=== PATIENT | male | born 1960 | race Hispanic/Latino ===

== ENCOUNTER 2019-02-11 20:31 | Inpatient (IN) | payer OTHER, SELFPAY ==
[~2019-02-11] VITALS: Ht 162.6 cm; Wt 80.2 kg
[2019-02-11] MEDS ORDERED: SODIUM CHLORIDE 0.9% 1000ML 2,000 ML IV ONE (21:43)
[2019-02-11 21:49] LABS: BASOPHILS % (AUTO) 0.4 % (0.0-5.0); EOSINOPHILS % (AUTO) 0.7 % (0.0-8.0); HEMATOCRIT 34.9 % (42-54); LYMPHOCYTES % (AUTO) 2.7 % (21.0-51.0); MEAN CORPUSCULAR HGB CONC 34.7 g/dL (32.0-36.0); MONOCYTES % (AUTO) 2.5 % (3.0-13.0); NEUTROPHILS % (AUTO) 93.3 % (40.0-77.0); PLATELET COUNT (AUTO) 105 K/uL (130-400); RED BLOOD CELL COUNT(AUTO) 3.56 MIL/uL (4.50-6.20); WHITE BLOOD COUNT (AUTO) 7.6 K/uL (4.8-10.8)
[2019-02-11 22:01] LABS: INR 1.42 (0.85-1.15); PARTIAL THROMBOPLASTIN TIME 25.5 SEC (26.3-35.5); PROTHROMBIN TIME 14.7 SEC (9.6-11.6)
[2019-02-11 22:04] LABS: ALBUMIN 2.7 g/dL (3.5-5.0); BILIRUBIN,TOTAL 1.4 mg/dL (0.2-1.0); CREATININE 0.8 mg/dL (0.5-1.5); TOTAL PROTEIN, SERUM 7.9 g/dL (6.0-8.3)
[2019-02-11 22:11] LABS: BAND NEUTROPHILS % (MANUAL) 22 % (0-2); EOSINOPHILS % (MANUAL) 1 % (1-6); LYMPHOCYTES % (MANUAL) 2 % (22-44); MONOCYTES % (MANUAL) 3 % (2-9); SEGMENTED NEUTROPHILS % 72 % (40-70)
[2019-02-11 22:12] LABS: MAN.DIFF COMMENT-IMPRESSION MANUAL DIFFERENTIAL
[2019-02-11 22:13] LABS: PLATELET MORPHOLOGY COMMENT SLIGHTLY D
[2019-02-11 22:47] LABS: APPEARANCE,URINE Clear (CLEAR); BILIRUBIN,URINE Negative (NEGATIVE); COLOR,URINE Yellow (YELLOW); GLUCOSE, URINE (UA) Negative (NEGATIVE); KETONES,URINE Trace mg/dL (NEGATIVE); LEUKOCYTE ESTERASE ,URINE Negative (NEGATIVE); NITRATE,URINE Negative (NEGATIVE); OCCULT BLOOD,URINE Negative (NEGATIVE); PH,URINE 5.5 (5.0-8.0); PROTEIN,URINE Negative (NEGATIVE)
[2019-02-11 23:05] LABS: BACTERIA,URINE None Seen /HPF (None Seen); MUCUS,URINE Rare LPF (None Seen); RBC,URINE None Seen /HPF (0-1); SQUAMOUS EPITHELIAL CELL,UR Few /HPF (0-2); WBC,URINE None Seen /HPF (0-1)
[2019-02-11] MEDS ORDERED: POTASSIUM BICARB/CIT AC 25 MEQ TABLET.EFF ONE (23:53)
[2019-02-12] MEDS ORDERED: CHLORDIAZEPOXIDE HCL 25 MG CAP PO PRN ×2 (01:00)
[2019-02-12] MEDS ORDERED: POTASSIUM CHLORIDE 10MEQ/100ML 100 ML IV PRN (01:00)
[2019-02-12] MEDS ORDERED: POTASSIUM CHLORIDE 10% ELIXIR 20 MEQ/15 ML UDCUP PO PRN (01:00)
[2019-02-12] MEDS ORDERED: ONDANSETRON HCL 4 MG/2 ML VIAL IV PRN (01:00)
[2019-02-12] MEDS ORDERED: LIDOCAINE HCL-MPF 1% 2ML VIAL IV PRN (01:00)
[2019-02-12] MEDS ORDERED: LORAZEPAM 2 MG/ML 1 ML VIAL IVP PRN ×2 (01:00)
[2019-02-12] MEDS ORDERED: ACETAMINOPHEN 325 MG TAB PO PRN ×2 (01:00)
[2019-02-12] MEDS: THIAMINE HCL 100 MG, FOLIC ACID 1 MG, M.V.I. IV [ADULT] 10 ML in SODIUM CHLORIDE 0.9% 1... IV SCH (01:00)
[2019-02-12] MEDS ORDERED: LACTULOSE 20 GM/30 ML UDCUP PO PRN (01:00)
[2019-02-12] MEDS ORDERED: PHARMACY COMMUNICATION MISC PRN (01:00)
[2019-02-12] MEDS ORDERED: PHYTONADIONE 10 MG/1 ML AMP ONE (01:37)
[2019-02-12] MEDS ORDERED: ZOSYN 3.375GM+NS 50ML 50 ML IV ONE (01:37)
[2019-02-12] MEDS ORDERED: PHARMACY COMMUNICATION MISC SCH (02:00)
[2019-02-12 03:03] LABS: CHOLESTEROL 157 mg/dL (<200); HDL CHOLESTEROL 97 mg/dL (29-71); LDL DIRECT 91 mg/dL (0-99); TRIGLYCERIDES 115 mg/dL (30-200)
[2019-02-12 03:09] LABS: HEMOGLOBIN A1C 6.1 % (4.0-6.0)
[2019-02-12] MEDS ORDERED: THIAMINE HCL 100 MG/ML 2ML VIAL ONE (03:57)
[2019-02-12] MEDS ORDERED: M.V.I. IV [ADULT] 10 ML VIAL IV ONE (03:57)
[2019-02-12] MEDS ORDERED: FOLIC ACID 5 MG/ML 10 ML VIAL ONE (03:58)
[2019-02-12] MEDS ORDERED: SODIUM CHLORIDE 0.9% 1000ML 1,000 ML IV ONE (04:00)
[2019-02-12 04:50] VITALS: BP 150/75
[2019-02-12 05:46] LABS: BASOPHILS % (AUTO) 0.3 % (0.0-5.0); EOSINOPHILS % (AUTO) 0.1 % (0.0-8.0); HEMATOCRIT 33.6 % (42-54); LYMPHOCYTES % (AUTO) 5.2 % (21.0-51.0); MEAN CORPUSCULAR HEMOGLOBIN 33.7 pg (27.0-33.0); MEAN CORPUSCULAR HGB CONC 34.2 g/dL (32.0-36.0); MEAN CORPUSCULAR VOLUME 98.5 fL (79-99); MONOCYTES % (AUTO) 7.5 % (3.0-13.0); NEUTROPHILS % (AUTO) 86.3 % (40.0-77.0); PLATELET COUNT (AUTO) 104 K/uL (130-400); RED BLOOD CELL COUNT(AUTO) 3.41 MIL/uL (4.50-6.20); RED CELL DISTRIBUTION WIDTH 12.9 % (11.0-15.5); WHITE BLOOD COUNT (AUTO) 15.8 K/uL (4.8-10.8)
[2019-02-12 06:12] LABS: POTASSIUM 3.8 mmol/L (3.5-5.1)
[2019-02-12] MEDS: ZOSYN 3.375GM+NS 50ML 50 ML IV SCH ×3 (06:20→15:29)
[2019-02-12] MEDS: IPRATROPIUM/ALBUTEROL SULFATE 3 ML SOLUTION IH SCH ×4 (07:03→23:28)
[2019-02-12 07:58] VITALS: BP 148/77
--- NOTE | 2019-02-12 08:01 | NUR ---
Notified Dr. Leonarda Sin of consultation for black tarry stool, positive occult blood study. REviewed labs, received order for Protonix 40 mg PO BID, Full liquid diet, CBC, BMP, PT/INR in am with staff to call Dr. Sin in the morning with lab results. Per Dr. Sin, no EGD at this time.
[2019-02-12] MEDS ORDERED: FAMOTIDINE 20MG TAB 20 MG TAB PO SCH (09:00)
[2019-02-12] MEDS: PANTOPRAZOLE SODIUM 40 MG TABLET.DR PO SCH ×2 (09:21→21:36)
[2019-02-12] MEDS ORDERED: METO-408 PO (10:41)
[2019-02-12] MEDS ORDERED: LOSA25TA41 PO (10:41)
[2019-02-12 11:20] VITALS: BP 139/72
[2019-02-12 16:00] VITALS: BP 134/80
[2019-02-12 17:49] LABS: HEMATOCRIT 34.2 % (42-54)
--- NOTE | 2019-02-12 19:54 | NUR ---
CM note met with patient and states resides at home alone, is independent with adls and self care and ambulation. no dme. pt drives. goes to [facility] and meds assist. dcp chetan is back home. states no dc needs. sister can assist as needed. Addendum: 02/12/19 at 1954 by JOVANY MEDELLIN CM Amended: Links added.
[2019-02-12 20:05] VITALS: BP 135/81
[2019-02-12] MEDS ORDERED: CHLORDIAZEPOXIDE HCL 25 MG CAP PO ONE (21:00)
[2019-02-12] MEDS: METOPROLOL TARTRATE 25 MG TAB PO SCH (21:36)
[2019-02-13 00:15] VITALS: BP 143/81
[2019-02-13] MEDS: THIAMINE HCL 100 MG, FOLIC ACID 1 MG, M.V.I. IV [ADULT] 10 ML in SODIUM CHLORIDE 0.9% 1... IV SCH (02:03)
[2019-02-13] MEDS: ZOSYN 3.375GM+NS 50ML 50 ML IV SCH ×2 (02:03→10:04)
[2019-02-13 04:49] VITALS: BP 134/70
[2019-02-13 05:19] LABS: HEMATOCRIT 32.7 % (42-54); MEAN CORPUSCULAR HEMOGLOBIN 33.4 pg (27.0-33.0); MEAN CORPUSCULAR HGB CONC 33.3 g/dL (32.0-36.0); MEAN CORPUSCULAR VOLUME 100.3 fL (79-99); PLATELET COUNT (AUTO) 101 K/uL (130-400); RED BLOOD CELL COUNT(AUTO) 3.26 MIL/uL (4.50-6.20); RED CELL DISTRIBUTION WIDTH 13.4 % (11.0-15.5); WHITE BLOOD COUNT (AUTO) 8.3 K/uL (4.8-10.8)
[2019-02-13 05:24] LABS: INR 1.6 (0.85-1.15); PROTHROMBIN TIME 16.5 SEC (9.6-11.6)
[2019-02-13 05:41] LABS: POTASSIUM 3.3 mmol/L (3.5-5.1)
[2019-02-13] MEDS: IPRATROPIUM/ALBUTEROL SULFATE 3 ML SOLUTION IH SCH ×2 (06:34→11:25)
[2019-02-13 07:04] LABS: BAND NEUTROPHILS % (MANUAL) 11 % (0-2); BASOPHILS % (MANUAL) 2 % (0-2); EOSINOPHILS % (MANUAL) 4 % (1-6); LYMPHOCYTES % (MANUAL) 12 % (22-44); MAN.DIFF COMMENT-IMPRESSION MANUAL DIFFERENTIAL; MONOCYTES % (MANUAL) 3 % (2-9); REACTIVE LYMPHOCYTES 1 % (0-0); SEGMENTED NEUTROPHILS % 67 % (40-70)
[2019-02-13 07:05] LABS: PLATELET MORPHOLOGY COMMENT SLIGHTLY DECREASED
[2019-02-13] MEDS: POTASSIUM CHLORIDE 20 MEQ ERTAB PO PRN ×3 (07:24→11:46)
--- NOTE | 2019-02-13 07:48 | NUR ---
Called Dr. iSn regarding lab trends as requested and stool progression. Patient reported two black tarry stools yesterday morning and one in the afternoon with more brown color. Per Dr. Sin, start patient on regular diet, if no problems with diet, may be discharged from his standpoint with Protonix 40 mg BID and follow up with Dr. Sin in 1 week.
[2019-02-13 07:55] VITALS: BP 154/80
[2019-02-13] MEDS ORDERED: SPIR25TA6 PO (08:08)
[2019-02-13] MEDS ORDERED: PANT40TA25 PO (08:08)
[2019-02-13] MEDS ORDERED: FURO20TA4 PO (08:08)
[2019-02-13] MEDS ORDERED: LOSARTAN 50 MG TABLET PO SCH (09:00)
[2019-02-13] MEDS: PANTOPRAZOLE SODIUM 40 MG TABLET.DR PO SCH (09:57)
[2019-02-13] MEDS: METOPROLOL TARTRATE 25 MG TAB PO SCH (09:58)
[2019-02-13 11:54] VITALS: BP 118/78
[2019-02-13 15:14] VITALS: BP 143/75
== END 2019-02-13 16:06 | disposition home or self-care (01) | DRG 378 ==
LOC: EDH 20:31 → OBSVTOIN 20:32 → EDHIP 20:32 → 3DH 02-12 04:26
PROVIDERS: ADMIT Family Medicine; ATTEND Family Medicine
DX: K92.2 Gastrointestinal hemorrhage, unspecified (principal); J98.11 Atelectasis; I10 Essential (primary) hypertension; E11.9 Type 2 diabetes mellitus without complications; K06.8 Other specified disorders of gingiva and edentulous alveolar ridge; K70.30 Alcoholic cirrhosis of liver without ascites; E87.6 Hypokalemia; F10.10 Alcohol abuse, uncomplicated; Z88.8 Allergy status to other drugs, medicaments and biological substances
CPT/HCPCS: 36415; 71045; 71250; 80048; 80053; 80061; 81001; 82270; 83036; 85014; 85018; 85025; 85610; 85730; 87040; 94640; 94664; G0378; G0480; J2543; J3411; J3430; J3490; J7030

== ENCOUNTER 2020-07-30 06:30 | Emergency (ER) | payer OTHER, SELFPAY ==
[~2020-07-30] VITALS: Ht 162.6 cm; Wt 83.0 kg
[~2020-07-30 06:30] MED LIST: FURO20TA4 PO; LOSA25TA41 PO; METO-408 PO; PANT40TA54 PO; SPIR25TA6 PO
[2020-07-30 06:36] VITALS: BP 114/45
[2020-07-30] MEDS ORDERED: KETOROLAC 30MG VIAL (30MG/ML) ONE (07:58)
[2020-07-30] MEDS ORDERED: METH-812 PO (09:51)
[2020-07-30] MEDS ORDERED: ESOM40CA54 PO (09:51)
[2020-07-30] MEDS ORDERED: NAPR-1180 PO (09:51)
== END 2020-07-30 10:36 | disposition home or self-care (01) ==
LOC: EDH 06:40
DX: M54.5 Low back pain (principal); F10.10 Alcohol abuse, uncomplicated; E11.9 Type 2 diabetes mellitus without complications; K74.60 Unspecified cirrhosis of liver; I10 Essential (primary) hypertension; Z79.1 Long term (current) use of non-steroidal anti-inflammatories (NSAID)
CPT/HCPCS: 96374; 99283; J1885

== ENCOUNTER 2021-06-29 13:13 | Inpatient (IN) | payer OTHER ==
[~2021-06-29] VITALS: Ht 162.6 cm; Wt 79.5 kg
[~2021-06-29 13:13] MED LIST changes: +ESOM40CA54 PO; +METH-812 PO; +NAPR-1180 PO
[2021-06-29 13:54] LABS: BASOPHILS % (AUTO) 0.9 % (0.0-5.0); EOSINOPHILS % (AUTO) 0.1 % (0.0-8.0); HEMATOCRIT 29.7 % (42-54); LYMPHOCYTES % (AUTO) 7.1 % (21.0-51.0); MEAN CORPUSCULAR HGB CONC 34.3 g/dL (32.0-36.0); MEAN CORPUSCULAR VOLUME 104.9 fL (79-99); MONOCYTES % (AUTO) 8.4 % (3.0-13.0); NEUTROPHILS % (AUTO) 83.2 % (40.0-77.0); PLATELET COUNT (AUTO) 99 K/uL (130-400); RED BLOOD CELL COUNT(AUTO) 2.83 MIL/uL (4.50-6.20); RED CELL DISTRIBUTION WIDTH 13.8 % (11.0-15.5); WHITE BLOOD COUNT (AUTO) 6.9 K/uL (4.8-10.8)
[2021-06-29] MEDS ORDERED: ONDANSETRON 4MG INJ IVP ONE (14:00)
[2021-06-29] MEDS ORDERED: FAMOTIDINE 20MG VIAL IV ONE (14:00)
[2021-06-29] MEDS ORDERED: LORAZEPAM 2 MG/ML 1 ML VIAL IVP ONE ×2 (14:00→15:00)
[2021-06-29] MEDS ORDERED: 0.9%NACL 1000ML 1,000 ML IV ONE (14:00)
[2021-06-29 14:04] LABS: CREATININE 1.3 mg/dL (0.5-1.5); POTASSIUM 3.9 mmol/L (3.5-5.1)
[2021-06-29 14:09] LABS: ALBUMIN 2.1 g/dL (3.5-5.0); BILIRUBIN,TOTAL 4.8 mg/dL (0.2-1.0); TOTAL PROTEIN, SERUM 7.6 g/dL (6.0-8.3)
[2021-06-29 14:11] LABS: INR 1.89 (0.85-1.15); PROTHROMBIN TIME 19.9 SEC (9.6-11.6)
[2021-06-29 14:13] LABS: PARTIAL THROMBOPLASTIN TIME 29.4 SEC (26.3-35.5)
[2021-06-29 14:50] LABS: INFLUENZA TYPE A NEGATIVE FOR TYPE A (NEG)
[2021-06-29] MEDS: M.V.I. IV [ADULT] 10 ML, FOLIC ACID 1 MG, THIAMINE HCL 100 MG in 0.9%NACL 1000ML 1,000 ML IV SCH (14:50)
[2021-06-29 14:51] LABS: INFLUENZA TYPE B NEGATIVE FOR TYPE B (NEG)
[2021-06-29 15:24] LABS: CRP QUANTITATIVE 20.4 mg/L (0.00-9.0); MAGNESIUM 1.2 mg/dL (1.80-2.40)
[2021-06-29] MEDS ORDERED: CEFTRIAXONE 2GM VIAL IVP SCH (16:00)
[2021-06-29] MEDS ORDERED: OCTREOTIDE ACETATE 100 MCG/ML AMP IV SCH (16:00)
[2021-06-29] MEDS ORDERED: MAGNESIUM 2GM PREMIX 50ML 50 ML IV SCH (16:00)
[2021-06-29] MEDS ORDERED: PHARMACY COMMUNICATION MISC PRN (16:00)
[2021-06-29] MEDS ORDERED: PANTOPRAZOLE 40MG INJ 80 MG in 0.9%NACL 100ML 100 ML IVP SCH (16:00)
[2021-06-29] MEDS ORDERED: OCTREOTIDE ACETATE 1,250 MCG in 0.9% NACL 250ML 250 ML IV SCH (16:00)
[2021-06-29] MEDS ORDERED: PANTOPRAZOLE 40 MG/VIAL IVP ONE (16:00)
[2021-06-29] MEDS ORDERED: PHYTONADIONE 10 MG/1 ML AMP SQ ONE (16:00)
[2021-06-29] MEDS ORDERED: THIAMINE HCL 100 MG/ML 2ML VIAL IVP SCH (16:00)
[2021-06-29] MEDS ORDERED: LACTULOSE 20 GM/30 ML UDCUP PO PRN (16:00)
[2021-06-29] MEDS ORDERED: LORAZEPAM 2 MG/ML 1 ML VIAL IVP PRN (16:00)
[2021-06-29 16:10] LABS: APPEARANCE,URINE Clear (CLEAR); BILIRUBIN,URINE Small (NEGATIVE); COLOR,URINE Dark Yellow (YELLOW); GLUCOSE, URINE (UA) Negative (NEGATIVE); KETONES,URINE 15 mg/dL (NEGATIVE); LEUKOCYTE ESTERASE ,URINE Small (NEGATIVE); NITRATE,URINE Negative (NEGATIVE); OCCULT BLOOD,URINE Small (NEGATIVE); PROTEIN,URINE Trace mg/dL (NEGATIVE)
[2021-06-29 16:18] LABS: AMPHET/METH SCREEN,URINE NEGATIVE (NEGATIVE); BARBITURATE SCREEN, URINE NEGATIVE (NEGATIVE); BENZODIAZEPINES SCREEN,URINE NEGATIVE (NEGATIVE); CANNABINOID SCREEN,URINE NEGATIVE (NEGATIVE); COCAINE SCREEN,URINE POSITIVE (NEGATIVE); OPIATE SCREEN,URINE NEGATIVE (NEGATIVE); PHENCYCLIDINE SCREEN,URINE NEGATIVE (NEGATIVE)
[2021-06-29 16:31] LABS: HEMATOCRIT 26.8 % (42-54)
[2021-06-29 16:33] LABS: BACTERIA,URINE Few /HPF (None Seen); MUCUS,URINE Few LPF (None Seen); SQUAMOUS EPITHELIAL CELL,UR Few /HPF (0-2)
[2021-06-29] MEDS: MAGNESIUM 2GM PREMIX 50ML 50 ML IV SCH ×2 (16:45→21:34)
[2021-06-29] MEDS ORDERED: LOSA50TA64 PO (17:22)
[2021-06-29] MEDS: CHLORDIAZEPOXIDE HCL 25 MG CAP PO SCH ×2 (17:23→21:33)
[2021-06-29 19:00] VITALS: BP 150/84
[2021-06-29 19:55] VITALS: BP 131/66
[2021-06-29] MEDS ORDERED: PANTOPRAZOLE 40 MG/VIAL IVP SCH (21:00)
[2021-06-29 21:32] LABS: HEMATOCRIT 24.6 % (42-54)
[2021-06-29] MEDS: RIFAXIMIN 550 MG TABLET PO SCH (21:33)
[2021-06-29] MEDS: ZOSYN 3.375GM +NS 50ML IV SCH (21:33)
[2021-06-29] MEDS: PANTOPRAZOLE 40 MG/VIAL IVP SCH (21:33)
[2021-06-29] MEDS ORDERED: METRONIDAZOLE 500MG/100ML BAG 100 ML IVPB SCH (22:00)
[2021-06-29 23:53] VITALS: BP 128/77
[2021-06-30] VITALS (23 sets, daily range): BP systolic 98–149; BP diastolic 40–81
[2021-06-30 02:42] LABS: BASOPHILS % (AUTO) 0.4 % (0.0-5.0); EOSINOPHILS % (AUTO) 0.9 % (0.0-8.0); HEMATOCRIT 23.4 % (42-54); LYMPHOCYTES % (AUTO) 15.2 % (21.0-51.0); MEAN CORPUSCULAR HEMOGLOBIN 34.4 pg (27.0-33.0); MEAN CORPUSCULAR HGB CONC 32.5 g/dL (32.0-36.0); MEAN CORPUSCULAR VOLUME 105.9 fL (79-99); MONOCYTES % (AUTO) 15.3 % (3.0-13.0); NEUTROPHILS % (AUTO) 67.8 % (40.0-77.0); PLATELET COUNT (AUTO) 64 K/uL (130-400); RED BLOOD CELL COUNT(AUTO) 2.21 MIL/uL (4.50-6.20); RED CELL DISTRIBUTION WIDTH 13.6 % (11.0-15.5); WHITE BLOOD COUNT (AUTO) 5.3 K/uL (4.8-10.8)
[2021-06-30 02:54] LABS: ALBUMIN 1.9 g/dL (3.5-5.0); BILIRUBIN,TOTAL 3.8 mg/dL (0.2-1.0); CREATININE 1.1 mg/dL (0.5-1.5); TOTAL PROTEIN, SERUM 6.5 g/dL (6.0-8.3)
[2021-06-30 02:55] LABS: INR 2.03 (0.85-1.15); PROTHROMBIN TIME 21.3 SEC (9.6-11.6)
[2021-06-30 02:56] LABS: PARTIAL THROMBOPLASTIN TIME 32.8 SEC (26.3-35.5)
[2021-06-30] MEDS: MAGNESIUM 2GM PREMIX 50ML 50 ML IV SCH (03:58)
[2021-06-30] MEDS: ZOSYN 3.375GM +NS 50ML IV SCH ×3 (04:02→20:14)
[2021-06-30] MEDS ORDERED: PHYTONADIONE 10 MG/1 ML AMP SQ ONE (06:00)
[2021-06-30] MEDS: CHLORDIAZEPOXIDE HCL 25 MG CAP PO SCH ×4 (07:55→20:14)
[2021-06-30] MEDS: PANTOPRAZOLE 40 MG/VIAL IVP SCH ×2 (07:55→20:14)
[2021-06-30] MEDS: RIFAXIMIN 550 MG TABLET PO SCH ×2 (07:55→20:14)
[2021-06-30] MEDS ORDERED: FENTANYL CITRATE PF 50 MCG/1 ML 2ML VIAL ONE (09:38)
[2021-06-30] MEDS ORDERED: LIDOCAINE HCL 1% 20 ML VIAL ONE (09:38)
[2021-06-30] MEDS ORDERED: PROPOFOL 10 MG/ML 20ML VIAL IV ONE (09:39)
[2021-06-30] MEDS ORDERED: PHENYLEPHRINE HCL 10 MG/ML 1ML VIAL IV ONE (09:47)
[2021-06-30] MEDS: M.V.I. IV [ADULT] 10 ML, FOLIC ACID 1 MG, THIAMINE HCL 100 MG in 0.9%NACL 1000ML 1,000 ML IV SCH (13:07)
[2021-06-30] MEDS ORDERED: LIDOCAINE HCL-MPF 1% 2ML VIAL IV PRN (15:30)
[2021-06-30] MEDS ORDERED: POTASSIUM CHLORIDE 10MEQ/100ML 100 ML IV PRN (15:30)
[2021-06-30] MEDS ORDERED: MAGNESIUM 2GM PREMIX 50ML 50 ML IV PRN (15:30)
[2021-07-01] MEDS: MAGNESIUM 2GM PREMIX 50ML 50 ML IV SCH (01:07)
[2021-07-01 03:25] LABS: HEMATOCRIT 23.3 % (42-54); MEAN CORPUSCULAR HEMOGLOBIN 34.5 pg (27.0-33.0); MEAN CORPUSCULAR HGB CONC 33.5 g/dL (32.0-36.0); MEAN CORPUSCULAR VOLUME 103.1 fL (79-99); RED BLOOD CELL COUNT(AUTO) 2.26 MIL/uL (4.50-6.20); RED CELL DISTRIBUTION WIDTH 13.2 % (11.0-15.5); WHITE BLOOD COUNT (AUTO) 4.8 K/uL (4.8-10.8)
[2021-07-01 03:36] LABS: MAGNESIUM 2.2 mg/dL (1.80-2.40); POTASSIUM 3.5 mmol/L (3.5-5.1)
[2021-07-01 04:29] VITALS: BP 145/75
[2021-07-01] MEDS: ZOSYN 3.375GM +NS 50ML IV SCH ×2 (05:17→12:49)
[2021-07-01 08:00] VITALS: BP 122/61
[2021-07-01] MEDS: PANTOPRAZOLE 40 MG/VIAL IVP SCH (09:02)
[2021-07-01] MEDS: CHLORDIAZEPOXIDE HCL 25 MG CAP PO SCH ×2 (09:02→14:15)
[2021-07-01] MEDS: RIFAXIMIN 550 MG TABLET PO SCH (09:02)
[2021-07-01] MEDS: M.V.I. IV [ADULT] 10 ML, FOLIC ACID 1 MG, THIAMINE HCL 100 MG in 0.9%NACL 1000ML 1,000 ML IV SCH (09:58)
[2021-07-01 12:00] VITALS: BP 128/68
[2021-07-01] MEDS ORDERED: PANT40TA PO (13:05)
[2021-07-01 16:00] VITALS: BP 130/78
== END 2021-07-01 18:00 | disposition home or self-care (01) | DRG 432 ==
LOC: EDH 13:13 → UNDOADMOB 13:14 → EDHIP 13:14 → 4BH 18:50
PROVIDERS: ADMIT Internal Medicine; ATTEND Internal Medicine
PROC: 30233K1 Transfusion of Nonautologous Frozen Plasma into Peripheral Vein, Percutaneous Approach (ICD-10-PCS; 2021-06-29)
PROC: 0DJ08ZZ Inspection of Upper Intestinal Tract, Via Natural or Artificial Opening Endoscopic (ICD-10-PCS; principal; 2021-06-30)
DX: K70.30 Alcoholic cirrhosis of liver without ascites (principal); J18.9 Pneumonia, unspecified organism; E43 Unspecified severe protein-calorie malnutrition; K92.2 Gastrointestinal hemorrhage, unspecified; D62 Acute posthemorrhagic anemia; E87.2 Acidosis; D68.4 Acquired coagulation factor deficiency; K76.6 Portal hypertension; N39.0 Urinary tract infection, site not specified; K92.0 Hematemesis; K31.89 Other diseases of stomach and duodenum; K72.90 Hepatic failure, unspecified without coma; D69.6 Thrombocytopenia, unspecified; I10 Essential (primary) hypertension; F14.10 Cocaine abuse, uncomplicated; F10.10 Alcohol abuse, uncomplicated; Z20.822 Contact with and (suspected) exposure to COVID-19; Y90.9 Presence of alcohol in blood, level not specified; E66.9 Obesity, unspecified; E83.42 Hypomagnesemia; E11.9 Type 2 diabetes mellitus without complications; E78.5 Hyperlipidemia, unspecified; F41.9 Anxiety disorder, unspecified; Z68.30 Body mass index [BMI] 30.0-30.9, adult
CPT/HCPCS: 36415; 43235; 70450; 71045; 72125; 74176; 76700; 80048; 80053; 80305; 81001; 82105; 82140; 82270; 82948; 83605; 83690; 83735; 84145; 84484; 85014; 85018; 85025; 85027; 85384; 85610; 85651; 85730; 86140; 86850; 86900; 86901; 86927; 87015; 87635; 87804; 93005; A4606; C9113; C9803; G0378; J0696; J2060; J2354; J2370; J2405; J2543; J2704; J3010; J3411; J3430; J3475; J3490; J7030; J7050; P9017

== ENCOUNTER 2022-04-17 16:08 | Inpatient (IN) | payer BC, OTHER ==
[~2022-04-17] VITALS: Ht 162.6 cm; Wt 72.1 kg
[~2022-04-17 16:08] MED LIST changes: -ESOM40CA54 PO; -FURO20TA4 PO; -LOSA25TA41 PO; +LOSA50TA64 PO; -METH-812 PO; -NAPR-1180 PO; +PANT40TA PO; -PANT40TA54 PO; -SPIR25TA6 PO
[2022-04-17] MEDS ORDERED: IBUPROFEN 800 MG TAB ONE (16:12)
[2022-04-17] MEDS ORDERED: IBUPROFEN 800 MG TAB PO ONE (16:30)
[2022-04-17 16:40] LABS: APPEARANCE,URINE CLEAR (CLEAR); BILIRUBIN,URINE NEGATIVE (NEGATIVE); COLOR,URINE YELLOW (YELLOW); GLUCOSE, URINE (UA) NEGATIVE (NEGATIVE); KETONES,URINE NEGATIVE (NEGATIVE); LEUKOCYTE ESTERASE ,URINE NEGATIVE Leu/uL (NEGATIVE); NITRATE,URINE NEGATIVE (NEGATIVE); OCCULT BLOOD,URINE MODERATE (NEGATIVE); PH,URINE 5.5 (5.0-8.0); PROTEIN,URINE 10 mg/dL (NEGATIVE); UROBILINOGEN,URINE 0.2 mg/dL (0.2-1.0)
[2022-04-17 16:47] LABS: AMPHET/METH SCREEN,URINE NEGATIVE (NEGATIVE); BARBITURATE SCREEN, URINE NEGATIVE (NEGATIVE); BENZODIAZEPINES SCREEN,URINE NEGATIVE (NEGATIVE); CANNABINOID SCREEN,URINE NEGATIVE (NEGATIVE); COCAINE SCREEN,URINE NEGATIVE (NEGATIVE); OPIATE SCREEN,URINE NEGATIVE (NEGATIVE); PHENCYCLIDINE SCREEN,URINE NEGATIVE (NEGATIVE)
[2022-04-17 16:49] LABS: BACTERIA,URINE RARE /HPF (None Seen); MUCUS,URINE RARE LPF (None Seen); OTHER CASTS, URINE 1 /LPF (None Seen); SQUAMOUS EPITHELIAL CELL,UR RARE /HPF (0-2)
[2022-04-17 16:53] LABS: BASOPHILS % (AUTO) 0.2 % (0.0-5.0); EOSINOPHILS % (AUTO) 0.1 % (0.0-8.0); HEMATOCRIT 27.7 % (42-54); MEAN CORPUSCULAR HEMOGLOBIN 34.8 pg (27.0-33.0); MEAN CORPUSCULAR HGB CONC 35.4 g/dL (32.0-36.0); MEAN CORPUSCULAR VOLUME 98.2 fL (79-99); MONOCYTES % (AUTO) 1.9 % (3.0-13.0); NEUTROPHILS % (AUTO) 94.9 % (40.0-77.0); PLATELET COUNT (AUTO) 83 K/uL (130-400); RED BLOOD CELL COUNT(AUTO) 2.82 MIL/uL (4.50-6.20); RED CELL DISTRIBUTION WIDTH 14.2 % (11.0-15.5); WHITE BLOOD COUNT (AUTO) 11.7 K/uL (4.8-10.8)
[2022-04-17 17:00] LABS: INR 2.08 (0.85-1.15); PROTHROMBIN TIME 21.8 SEC (9.6-11.6)
[2022-04-17] MEDS ORDERED: 0.9%NACL 1000ML 1,000 ML IV ONE (17:00)
[2022-04-17] MEDS ORDERED: ZOSYN 3.375GM +NS 50ML IVPB STA (17:01)
[2022-04-17 17:02] LABS: PARTIAL THROMBOPLASTIN TIME 30.5 SEC (26.3-35.5)
[2022-04-17] MEDS ORDERED: ZOSYN 3.375GM+NS 50ML 50 ML IVPB ONE (17:02)
[2022-04-17 17:03] LABS: CREATININE 1.6 mg/dL (0.5-1.5); POTASSIUM 3.5 mmol/L (3.5-5.1)
[2022-04-17 17:07] LABS: ALBUMIN 2.2 g/dL (3.5-5.0); TOTAL PROTEIN, SERUM 6.6 g/dL (6.0-8.3)
[2022-04-17 17:08] LABS: ALCOHOL, BLOOD < 3 mg/dL (0-10)
[2022-04-17 17:11] LABS: AMMONIA 124 umol/L (11-32)
[2022-04-17] MEDS ORDERED: LACTULOSE 20 GM/30 ML UDCUP PR ONE (17:30)
[2022-04-17] MEDS ORDERED: ONDANSETRON 4MG INJ IVP PRN (18:30)
[2022-04-17] MEDS ORDERED: FOLIC ACID 1 MG TABLET PO SCH (18:30)
[2022-04-17] MEDS ORDERED: ACETAMINOPHEN 500 MG TABLET PO PRN ×2 (18:30)
[2022-04-17] MEDS ORDERED: PANTOPRAZOLE 40 MG/VIAL IVP SCH (18:30)
[2022-04-17] MEDS ORDERED: THIAMINE HCL 100 MG/ML 2ML VIAL IVP ONE (18:30)
[2022-04-17] MEDS ORDERED: OCTREOTIDE ACETATE 100 MCG/ML AMP IV ONE (18:30)
[2022-04-17] MEDS ORDERED: PHYTONADIONE 10 MG/1 ML AMP SQ ONE (18:30)
[2022-04-17] MEDS ORDERED: DEXTROSE 50%-WATER 50 ML DISP.SYRIN IV PRN (19:00)
[2022-04-17] MEDS ORDERED: 0.9%NACL 50ML IV SCH (19:00)
[2022-04-17] MEDS ORDERED: GLUCAGON 1MG KIT 1 MG ML IM PRN (19:00)
[2022-04-17] MEDS: 0.9%NACL 1000ML 1,000 ML IV SCH (19:02)
[2022-04-17 19:28] LABS: CRP QUANTITATIVE 29.5 mg/L (0.00-9.0)
[2022-04-17] MEDS: ERYTHROMYCIN LACTOBIONATE 250 MG in 0.9%NACL 100ML 100 ML IV SCH (21:30)
[2022-04-17 21:38] LABS: HEMATOCRIT 26.6 % (42-54)
[2022-04-17 21:47] LABS: CREATININE,URINE RANDOM 224 mg/dL (30-135); SODIUM,URINE RANDOM < 14 mmol/l (40-220)
[2022-04-17] MEDS: PANTOPRAZOLE 40MG INJ 80 MG in 0.9%NACL 100ML 100 ML IVP SCH (22:19)
[2022-04-17] MEDS: OCTREOTIDE ACETATE 1,250 MCG in 0.9% NACL 250ML 250 ML IV SCH (22:20)
[2022-04-17] MEDS: LACTULOSE 20 GM/30 ML UDCUP PO SCH (22:33)
[2022-04-17] MEDS: DOXYCYCLINE 100MG+NS 250ML IV SCH (22:34)
[2022-04-17] MEDS: RIFAXIMIN 550 MG TABLET PO SCH (22:34)
[2022-04-17] MEDS: ZOSYN 3.375GM +NS 50ML IVPB SCH (22:34)
[2022-04-18 02:35] LABS: HEMATOCRIT 25.7 % (42-54)
[2022-04-18] MEDS: LACTULOSE 20 GM/30 ML UDCUP PO SCH ×4 (05:00→19:16)
[2022-04-18] MEDS: ZOSYN 3.375GM +NS 50ML IVPB SCH ×3 (05:18→20:12)
[2022-04-18 05:54] LABS: INR 1.92 (0.85-1.15); PROTHROMBIN TIME 20.2 SEC (9.6-11.6)
[2022-04-18 05:55] LABS: PARTIAL THROMBOPLASTIN TIME 33.8 SEC (26.3-35.5)
[2022-04-18 05:58] LABS: ALBUMIN 1.9 g/dL (3.5-5.0); CREATININE 1.4 mg/dL (0.5-1.5); MAGNESIUM 1.2 mg/dL (1.80-2.40); POTASSIUM 3.8 mmol/L (3.5-5.1); TOTAL PROTEIN, SERUM 5.9 g/dL (6.0-8.3)
[2022-04-18] MEDS ORDERED: PANTOPRAZOLE 40 MG/VIAL ONE (06:04)
[2022-04-18] MEDS: PANTOPRAZOLE 40MG INJ 80 MG in 0.9%NACL 100ML 100 ML IVP SCH (06:10)
[2022-04-18] MEDS ORDERED: PHYTONADIONE 10 MG in 0.9%NACL 50ML 50 ML IVPB SCH (07:00)
[2022-04-18] MEDS: RIFAXIMIN 550 MG TABLET PO SCH ×2 (07:00→19:16)
[2022-04-18] MEDS: 0.9%NACL 1000ML 1,000 ML IV SCH (07:33)
[2022-04-18] MEDS: DOXYCYCLINE 100MG+NS 250ML IV SCH ×2 (08:10→20:12)
[2022-04-18 09:38] LABS: HEMATOCRIT 27.2 % (42-54)
[2022-04-18] MEDS: ERYTHROMYCIN LACTOBIONATE 250 MG in 0.9%NACL 100ML 100 ML IV SCH (09:47)
[2022-04-18 11:16] VITALS: BP 103/55
[2022-04-18] MEDS ORDERED: POTASSIUM CHLORIDE 10MEQ/100ML 100 ML IV PRN (11:30)
[2022-04-18] MEDS ORDERED: MAGNESIUM 2GM PREMIX 50ML 50 ML IV PRN (11:30)
[2022-04-18] MEDS ORDERED: LIDOCAINE HCL-MPF 1% 2ML VIAL IV PRN (11:30)
[2022-04-18] MEDS ORDERED: PROPOFOL 10 MG/ML 20ML VIAL IV ONE (11:51)
[2022-04-18] MEDS ORDERED: PHENYLEPHRINE HCL 10 MG/ML 1ML VIAL IV ONE (11:51)
[2022-04-18 13:00] VITALS: BP 104/64
[2022-04-18 16:00] VITALS: BP 98/58
[2022-04-18] MEDS ORDERED: SPIR100T PO (18:02)
[2022-04-18] MEDS ORDERED: FOLI0.8T3 PO (18:02)
[2022-04-18] MEDS ORDERED: FURO40TA5 PO (18:02)
[2022-04-18] MEDS ORDERED: PANT40TA55 PO (18:02)
[2022-04-18 19:32] VITALS: BP 111/59
[2022-04-19] VITALS (7 sets, daily range): BP systolic 116–132; BP diastolic 64–73
[2022-04-19] MEDS: LACTULOSE 20 GM/30 ML UDCUP PO SCH ×3 (01:00→13:00)
[2022-04-19 04:05] LABS: BASOPHILS % (AUTO) 0.4 % (0.0-5.0); EOSINOPHILS % (AUTO) 3.4 % (0.0-8.0); HEMATOCRIT 27.4 % (42-54); LYMPHOCYTES % (AUTO) 10.1 % (21.0-51.0); MEAN CORPUSCULAR HEMOGLOBIN 34.4 pg (27.0-33.0); MEAN CORPUSCULAR HGB CONC 34.7 g/dL (32.0-36.0); MEAN CORPUSCULAR VOLUME 99.3 fL (79-99); MONOCYTES % (AUTO) 8.3 % (3.0-13.0); NEUTROPHILS % (AUTO) 77.1 % (40.0-77.0); PLATELET COUNT (AUTO) 87 K/uL (130-400); RED BLOOD CELL COUNT(AUTO) 2.76 MIL/uL (4.50-6.20); RED CELL DISTRIBUTION WIDTH 14.6 % (11.0-15.5)
[2022-04-19 04:26] LABS: ALBUMIN 1.8 g/dL (3.5-5.0); BILIRUBIN,DIRECT 0.7 mg/dL (0.0-0.3); CREATININE 1.3 mg/dL (0.5-1.5); POTASSIUM 3.3 mmol/L (3.5-5.1); TOTAL PROTEIN, SERUM 5.5 g/dL (6.0-8.3)
[2022-04-19] MEDS: ZOSYN 3.375GM +NS 50ML IVPB SCH ×3 (04:30→20:27)
[2022-04-19] MEDS ORDERED: POTASSIUM CHLORIDE 10MEQ/100ML 100 ML IV PRN (05:00)
[2022-04-19] MEDS: RIFAXIMIN 550 MG TABLET PO SCH ×2 (06:29→20:25)
[2022-04-19] MEDS: KCL 20 MEQ ERTAB PO PRN ×3 (06:30→10:26)
[2022-04-19] MEDS: DOXYCYCLINE 100MG+NS 250ML IV SCH ×2 (08:06→20:24)
[2022-04-19] MEDS: PANTOPRAZOLE 40 MG TAB DR PO SCH (08:06)
[2022-04-19] MEDS: OCTREOTIDE ACETATE 1,250 MCG in 0.9% NACL 250ML 250 ML IV SCH (20:25)
[2022-04-19] MEDS: ERYTHROMYCIN LACTOBIONATE 250 MG in 0.9%NACL 100ML 100 ML IV SCH (22:13)
[2022-04-20 04:44] VITALS: BP 117/63
[2022-04-20] MEDS: ZOSYN 3.375GM +NS 50ML IVPB SCH ×3 (05:06→21:33)
[2022-04-20] MEDS: LACTULOSE 20 GM/30 ML UDCUP PO SCH ×4 (05:06→18:42)
[2022-04-20 06:05] LABS: BASOPHILS % (AUTO) 0.9 % (0.0-5.0); HEMATOCRIT 31.5 % (42-54); LYMPHOCYTES % (AUTO) 16.2 % (21.0-51.0); MEAN CORPUSCULAR HEMOGLOBIN 34.4 pg (27.0-33.0); MEAN CORPUSCULAR HGB CONC 33.7 g/dL (32.0-36.0); MEAN CORPUSCULAR VOLUME 102.3 fL (79-99); MONOCYTES % (AUTO) 8.3 % (3.0-13.0); NEUTROPHILS % (AUTO) 67.9 % (40.0-77.0); PLATELET COUNT (AUTO) 117 K/uL (130-400); RED BLOOD CELL COUNT(AUTO) 3.08 MIL/uL (4.50-6.20); RED CELL DISTRIBUTION WIDTH 14.6 % (11.0-15.5); WHITE BLOOD COUNT (AUTO) 9.6 K/uL (4.8-10.8)
[2022-04-20 06:57] LABS: BILIRUBIN,DIRECT 0.9 mg/dL (0.0-0.3); CREATININE 1.1 mg/dL (0.5-1.5); CRP QUANTITATIVE 30.6 mg/L (0.00-9.0); POTASSIUM 3.8 mmol/L (3.5-5.1); TOTAL PROTEIN, SERUM 6.3 g/dL (6.0-8.3)
[2022-04-20 08:00] VITALS: BP 122/74
[2022-04-20] MEDS: DOXYCYCLINE 100MG+NS 250ML IV SCH ×2 (09:40→21:33)
[2022-04-20] MEDS: RIFAXIMIN 550 MG TABLET PO SCH ×2 (09:40→21:33)
[2022-04-20] MEDS: PANTOPRAZOLE 40 MG TAB DR PO SCH (09:40)
[2022-04-20 12:00] VITALS: BP 116/69
[2022-04-20 16:00] VITALS: BP 112/62
[2022-04-20 20:05] VITALS: BP 145/68
[2022-04-20] MEDS: ERYTHROMYCIN LACTOBIONATE 250 MG in 0.9%NACL 100ML 100 ML IV SCH (21:37)
[2022-04-20 23:28] VITALS: BP 118/67
[2022-04-21 04:19] VITALS: BP 91/58
[2022-04-21] MEDS: ZOSYN 3.375GM +NS 50ML IVPB SCH ×3 (05:01→23:17)
[2022-04-21] MEDS: LACTULOSE 20 GM/30 ML UDCUP PO SCH ×5 (05:02→23:26)
[2022-04-21 06:12] LABS: BASOPHILS % (AUTO) 0.8 % (0.0-5.0); EOSINOPHILS % (AUTO) 6.4 % (0.0-8.0); HEMATOCRIT 31.9 % (42-54); LYMPHOCYTES % (AUTO) 16.9 % (21.0-51.0); MEAN CORPUSCULAR HEMOGLOBIN 33.4 pg (27.0-33.0); MEAN CORPUSCULAR HGB CONC 32.3 g/dL (32.0-36.0); MEAN CORPUSCULAR VOLUME 103.6 fL (79-99); MONOCYTES % (AUTO) 8.6 % (3.0-13.0); NEUTROPHILS % (AUTO) 66.2 % (40.0-77.0); PLATELET COUNT (AUTO) 112 K/uL (130-400); RED BLOOD CELL COUNT(AUTO) 3.08 MIL/uL (4.50-6.20); RED CELL DISTRIBUTION WIDTH 14.6 % (11.0-15.5)
[2022-04-21 06:24] LABS: INR 1.88 (0.85-1.15); PROTHROMBIN TIME 19.8 SEC (9.6-11.6)
[2022-04-21 06:25] LABS: PARTIAL THROMBOPLASTIN TIME 33.9 SEC (26.3-35.5)
[2022-04-21 06:32] LABS: ALBUMIN 1.8 g/dL (3.5-5.0); CREATININE 1.1 mg/dL (0.5-1.5); MAGNESIUM 1.2 mg/dL (1.80-2.40); POTASSIUM 3.9 mmol/L (3.5-5.1); TOTAL PROTEIN, SERUM 5.9 g/dL (6.0-8.3)
[2022-04-21 07:30] VITALS: BP 114/63
[2022-04-21] MEDS: RIFAXIMIN 550 MG TABLET PO SCH ×2 (10:54→23:17)
[2022-04-21] MEDS: DOXYCYCLINE 100MG+NS 250ML IV SCH (10:54)
[2022-04-21] MEDS: PANTOPRAZOLE 40 MG TAB DR PO SCH (10:54)
[2022-04-21 11:30] VITALS: BP 104/56
[2022-04-21 15:30] VITALS: BP 114/64
[2022-04-21 20:00] VITALS: BP 111/61
[2022-04-22] VITALS (12 sets, daily range): BP systolic 98–128; BP diastolic 47–81
[2022-04-22] MEDS: MAGNESIUM 2GM PREMIX 50ML 50 ML IV PRN (03:23)
[2022-04-22] MEDS: ZOSYN 3.375GM +NS 50ML IVPB SCH ×3 (05:20→21:22)
[2022-04-22] MEDS: LACTULOSE 20 GM/30 ML UDCUP PO SCH ×3 (05:29→18:00)
[2022-04-22 07:53] LABS: HEMATOCRIT 26.6 % (42-54); MEAN CORPUSCULAR HEMOGLOBIN 34.2 pg (27.0-33.0); MEAN CORPUSCULAR HGB CONC 34.2 g/dL (32.0-36.0); RED BLOOD CELL COUNT(AUTO) 2.66 MIL/uL (4.50-6.20); RED CELL DISTRIBUTION WIDTH 14.6 % (11.0-15.5); WHITE BLOOD COUNT (AUTO) 7.2 K/uL (4.8-10.8)
[2022-04-22 08:08] LABS: MAGNESIUM 1.5 mg/dL (1.80-2.40); POTASSIUM 3.6 mmol/L (3.5-5.1)
[2022-04-22] MEDS: PANTOPRAZOLE 40 MG TAB DR PO SCH (09:57)
[2022-04-22] MEDS: RIFAXIMIN 550 MG TABLET PO SCH ×2 (09:57→21:22)
[2022-04-22 14:08] LABS: APPEARANCE BODY FLUID CLEAR (CLEAR); COLOR,BODY FLUID YELLOW (LT YELLOW); SPECIMENTYPE,BODY FLUID ASCITES; TOTAL VOLUME,BODY FLUID 2000 mL
[2022-04-22 14:27] LABS: BODY FLUID RBC 237 /cu. mm.; BODY FLUID WBC 269 /cu. mm.
[2022-04-22] MEDS ORDERED: LIDOCAINE HCL 1% 20 ML VIAL ONE (15:37)
[2022-04-22 17:03] LABS: BF LYMPHOCYTE 13 %; BF MONOCYTE 1 %; BF OTHER CELLS 3
[2022-04-23] VITALS (7 sets, daily range): BP systolic 93–114; BP diastolic 48–64
[2022-04-23] MEDS: LACTULOSE 20 GM/30 ML UDCUP PO SCH ×4 (00:48→18:18)
[2022-04-23] MEDS: ZOSYN 3.375GM +NS 50ML IVPB SCH ×3 (05:21→21:30)
[2022-04-23] MEDS: KCL 20 MEQ ERTAB PO PRN ×2 (08:17→11:30)
[2022-04-23] MEDS: PANTOPRAZOLE 40 MG TAB DR PO SCH (08:18)
[2022-04-23] MEDS: RIFAXIMIN 550 MG TABLET PO SCH ×2 (08:18→21:31)
[2022-04-23] MEDS: MAGNESIUM 2GM PREMIX 50ML 50 ML IV PRN (08:19)
[2022-04-23 10:45] LABS: HEMATOCRIT 28.5 % (42-54); MEAN CORPUSCULAR HEMOGLOBIN 34.7 pg (27.0-33.0); MEAN CORPUSCULAR HGB CONC 35.1 g/dL (32.0-36.0); RED BLOOD CELL COUNT(AUTO) 2.88 MIL/uL (4.50-6.20); RED CELL DISTRIBUTION WIDTH 14.6 % (11.0-15.5); WHITE BLOOD COUNT (AUTO) 6.4 K/uL (4.8-10.8)
[2022-04-23 10:53] LABS: CREATININE 0.9 mg/dL (0.5-1.5); POTASSIUM 3.6 mmol/L (3.5-5.1)
[2022-04-23 13:00] LABS: INR 1.8 (0.85-1.15)
[2022-04-23 13:02] LABS: PARTIAL THROMBOPLASTIN TIME 30.7 SEC (26.3-35.5)
[2022-04-24 03:17] VITALS: BP 99/57
[2022-04-24] MEDS: ZOSYN 3.375GM +NS 50ML IVPB SCH ×3 (04:08→21:27)
[2022-04-24 05:26] LABS: MAGNESIUM 1.3 mg/dL (1.80-2.40); POTASSIUM 3.6 mmol/L (3.5-5.1)
[2022-04-24] MEDS: KCL 20 MEQ ERTAB PO PRN ×2 (05:29→08:57)
[2022-04-24] MEDS: MAGNESIUM 2GM PREMIX 50ML 50 ML IV PRN (05:30)
[2022-04-24] MEDS: LACTULOSE 20 GM/30 ML UDCUP PO SCH ×4 (05:30→16:19)
[2022-04-24 08:00] VITALS: BP 104/59
[2022-04-24] MEDS: PANTOPRAZOLE 40 MG TAB DR PO SCH (08:54)
[2022-04-24] MEDS: RIFAXIMIN 550 MG TABLET PO SCH ×2 (08:54→21:27)
[2022-04-24 11:38] VITALS: BP 104/56
[2022-04-24 16:00] VITALS: BP 106/63
[2022-04-24 20:00] VITALS: BP 130/74
[2022-04-25] VITALS: BP 114/58
[2022-04-25 04:00] VITALS: BP 103/58
[2022-04-25] MEDS: ZOSYN 3.375GM +NS 50ML IVPB SCH ×2 (04:53→12:43)
[2022-04-25] MEDS: LACTULOSE 20 GM/30 ML UDCUP PO SCH ×3 (05:01→12:43)
[2022-04-25 06:01] LABS: MAGNESIUM 1.4 mg/dL (1.80-2.40); POTASSIUM 3.4 mmol/L (3.5-5.1)
[2022-04-25 08:00] VITALS: BP 111/66
[2022-04-25] MEDS: RIFAXIMIN 550 MG TABLET PO SCH (08:59)
[2022-04-25] MEDS: PANTOPRAZOLE 40 MG TAB DR PO SCH (08:59)
[2022-04-25] MEDS: KCL 20 MEQ ERTAB PO PRN ×2 (09:00→12:47)
[2022-04-25] MEDS: MAGNESIUM 2GM PREMIX 50ML 50 ML IV PRN (09:00)
[2022-04-25 12:00] VITALS: BP 124/62
[2022-04-25] MEDS ORDERED: PANT40TA PO (12:36)
[2022-04-25] MEDS ORDERED: LACT PO (12:36)
[2022-04-25] MEDS ORDERED: RIFA550T PO (12:36)
[2022-04-25 16:00] VITALS: BP 108/64
== END 2022-04-25 17:05 | disposition home or self-care (01) | DRG 871 ==
LOC: EDH 16:08 → EDHIP 16:09 → 2DH 04-18 13:07 → 3AH 04-19 12:06
PROVIDERS: ADMIT Internal Medicine; ATTEND Internal Medicine
PROC: 06L38CZ Occlusion of Esophageal Vein with Extraluminal Device, Via Natural or Artificial Opening Endoscopic (ICD-10-PCS; principal; 2022-04-18)
PROC: 30233K1 Transfusion of Nonautologous Frozen Plasma into Peripheral Vein, Percutaneous Approach (ICD-10-PCS; 2022-04-18)
PROC: 0W9G3ZZ Drainage of Peritoneal Cavity, Percutaneous Approach (ICD-10-PCS; 2022-04-22)
PROC: 02HV33Z Insertion of Infusion Device into Superior Vena Cava, Percutaneous Approach (ICD-10-PCS; 2022-04-23)
DX: A41.9 Sepsis, unspecified organism (principal); G93.41 Metabolic encephalopathy; J18.9 Pneumonia, unspecified organism; I85.11 Secondary esophageal varices with bleeding; K29.01 Acute gastritis with bleeding; E87.20 Acidosis, unspecified; N17.9 Acute kidney failure, unspecified; E87.1 Hypo-osmolality and hyponatremia; D68.9 Coagulation defect, unspecified; D62 Acute posthemorrhagic anemia; K76.6 Portal hypertension; Z20.822 Contact with and (suspected) exposure to COVID-19; K70.31 Alcoholic cirrhosis of liver with ascites; R65.20 Severe sepsis without septic shock; K76.82 Hepatic encephalopathy; D69.6 Thrombocytopenia, unspecified; R16.1 Splenomegaly, not elsewhere classified; K31.89 Other diseases of stomach and duodenum; I10 Essential (primary) hypertension; B96.89 Other specified bacterial agents as the cause of diseases classified elsewhere; E83.42 Hypomagnesemia; B96.81 Helicobacter pylori [H. pylori] as the cause of diseases classified elsewhere; E11.9 Type 2 diabetes mellitus without complications; E78.5 Hyperlipidemia, unspecified; Z79.899 Other long term (current) drug therapy
CPT/HCPCS: 36415; 36430; 43244; 49083; 71045; 74176; 76700; 80048; 80053; 80076; 80305; 81001; 82140; 82270; 82550; 82570; 82948; 83605; 83735; 84132; 84145; 84300; 84484; 84540; 85014; 85018; 85025; 85027; 85384; 85610; 85651; 85730; 86140; 86677; 86850; 86900; 86901; 86927; 87040; 87071; 87088; 87205; 87635; 87804; 89051; 93005; 93306; 96361; 96365; 99291; A4606; C1729; C1894; C9113; C9803; G0378; J1364; J2354; J2370; J2543; J2704; J3411; J3430; J3475; J3490; J7030; J7050; P9017

== ENCOUNTER 2023-12-01 10:00 | Day surgery (SDC) | payer MEDICAID ==
[~2023-12-01] VITALS: Ht 162.6 cm; Wt 74.8 kg
[2023-12-01] VITALS (10 sets, daily range): BP systolic 107–128; BP diastolic 46–68; PULSE 63–68; RESP 15–20; TEMP 97.1–99.1
[~2023-12-01 10:00] MED LIST changes: +FOLI0.8T3 PO; +FURO40TA5 PO; +LACT PO; -LOSA50TA64 PO; -METO-408 PO; +RIFA550T PO; +SPIR100T PO
[2023-12-01 11:27] LABS: BASOPHILS # (AUTO) 0.05 K/uL (0.00-0.20); BASOPHILS % (AUTO) 0.8 % (0.0-5.0); EOSINOPHILS # (AUTO) 0.38 K/uL (0.00-0.70); EOSINOPHILS % (AUTO) 5.9 % (0.0-8.0); HEMATOCRIT 38.2 % (42-54); IMMATURE GRANULOCYTE ABSOLUTE 0.03 K/uL (0-1); LYMPHOCYTES # (AUTO) 1.1 K/uL (1.0-4.8); LYMPHOCYTES % (AUTO) 17.2 % (21.0-51.0); MEAN CORPUSCULAR HEMOGLOBIN 34.7 pg (27.0-33.0); MEAN CORPUSCULAR HGB CONC 33.8 g/dL (32.0-36.0); MEAN CORPUSCULAR VOLUME 102.7 fL (79-99); MONOCYTES # (AUTO) 0.6 K/uL (0.1-1.0); MONOCYTES % (AUTO) 9.9 % (3.0-13.0); NEUTROPHILS # (AUTO) 4.2 K/uL (1.8-7.7); NEUTROPHILS % (AUTO) 65.7 % (40.0-77.0); PLATELET COUNT (AUTO) 117 K/uL (130-400); RED BLOOD CELL COUNT(AUTO) 3.72 MIL/uL (4.50-6.20); WHITE BLOOD COUNT (AUTO) 6.5 K/uL (4.8-10.8)
[2023-12-01 11:38] LABS: INR 1.83 (0.85-1.15); PROTHROMBIN TIME 18.9 SEC (9.6-11.6)
[2023-12-01 11:39] LABS: PARTIAL THROMBOPLASTIN TIME 29.7 SEC (26.3-35.5)
[2023-12-01 11:53] LABS: CREATININE 1.2 mg/dL (0.5-1.3); POTASSIUM 3.8 mmol/L (3.5-5.1)
[2023-12-01] MEDS: 0.9%NACL 1000ML 1,000 ML IV ONE (12:08)
[2023-12-01] MEDS ORDERED: proPOFol 10 MG/ML 20ML VIAL IV ONE ×2 (12:45→13:07)
== END 2023-12-01 14:20 | disposition home or self-care (01) ==
LOC: ENDO 10:00 → DAH 10:00 → ENDO 14:20
PROVIDERS: ATTEND Internal Medicine Gastroenterology
DX: K76.6 Portal hypertension (principal); I85.10 Secondary esophageal varices without bleeding; K31.89 Other diseases of stomach and duodenum; K21.00 Gastro-esophageal reflux disease with esophagitis, without bleeding; K29.00 Acute gastritis without bleeding; K74.60 Unspecified cirrhosis of liver; I10 Essential (primary) hypertension; Z79.899 Other long term (current) drug therapy
CPT/HCPCS: 43235; 80048; 85025; 85610; 85730; 36415; J7030; J3490 ×2; A4215 ×2; A4223; A4221; A4663; A4606; J2704

== ENCOUNTER 2025-01-17 10:41 | Day surgery (SDC) | payer MEDICAID ==
[2025-01-17] VITALS (10 sets, daily range): BP systolic 111–123; BP diastolic 50–65; PULSE 58–90; RESP 15–18; TEMP 97.6–98.6
[~2025-01-17] VITALS: Ht 162.6 cm; Wt 73.9 kg
[~2025-01-17 10:41] MED LIST changes: +0.9%NACL 1000ML 1,000 ML IV ONE; -FOLI0.8T3 PO; -FURO40TA5 PO; -LACT PO; -PANT40TA PO; -RIFA550T PO; -SPIR100T PO
[2025-01-17] MEDS ORDERED: LIDOCAINE PF 100MG/5ML (2%) SYRINGE 5ML ONE (12:03)
[2025-01-17] MEDS ORDERED: GLYCOPYRROLATE 0.2 MG/ML 5 ML VIAL ONE (12:03)
--- NOTE | 2025-01-17 13:15 | NUR ---
BOTH PT AND FRIEND GIVEN VERBAL AND WRITTEN DISCHARGE INSTRUCTIONS. IV REMOVED SITE ASYMPTOMATIC.
== END 2025-01-17 13:32 | disposition home or self-care (01) ==
LOC: ENDO 10:41 → DAH 10:48 → ENDO 13:32
PROVIDERS: ATTEND Internal Medicine Gastroenterology
DX: D50.9 Iron deficiency anemia, unspecified (principal); K29.50 Unspecified chronic gastritis without bleeding; K74.60 Unspecified cirrhosis of liver; K76.6 Portal hypertension; K31.89 Other diseases of stomach and duodenum; I85.10 Secondary esophageal varices without bleeding; Z87.891 Personal history of nicotine dependence; Z83.3 Family history of diabetes mellitus; Z79.899 Other long term (current) drug therapy
CPT/HCPCS: 88305; 88312; 43239; J7030 ×2; J2003; J2704; J3490; A4620; A4215 ×2; A4223; A4657; A7002; A4222; A4221; A4663; A4606